=== PATIENT | female | born 1965 | race African-American/Black ===

== ENCOUNTER 2019-03-15 22:29 | Emergency (ER) | payer OTHER ==
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
== END 2019-03-15 23:36 | disposition home or self-care (01) ==
LOC: JP.ED 22:29
DX: M62.830 Muscle spasm of back (principal); M62.838 Other muscle spasm; V49.49XA Driver injured in collision with other motor vehicles in traffic accident, initial encounter
CPT/HCPCS: 99283

== ENCOUNTER 2019-03-30 22:22 | Emergency (ER) | payer OTHER ==
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
== END 2019-03-30 23:34 | disposition home or self-care (01) ==
LOC: JP.ED 22:22
DX: M54.5 Low back pain (principal)
CPT/HCPCS: 99283